=== PATIENT | male | born 1990 | race Caucasian/White ===

== ENCOUNTER 2024-07-16 06:09 | Day surgery (SDC) | payer OTHER, SELFPAY ==
[2024-07-16 07:30] VITALS: BP 134/63
[2024-07-16 07:40] VITALS: BMI 27.1
[2024-07-16 07:45] VITALS: BMI 27.1
[2024-07-16] MEDS: NORMOSOL-R/PLASMALYTE-A 1000 IV (07:50)
[2024-07-16] MEDS: TYLENOL 1000 MG PO (08:12)
[2024-07-16 09:32] VITALS: BP 102/54
[2024-07-16 09:45] VITALS: BP 102/60
[2024-07-16 10:00] VITALS: BP 107/60
[2024-07-16 10:07] VITALS: BP 110/61
[2024-07-16 10:15] VITALS: BP 109/73
== END 2024-07-16 10:30 | disposition home or self-care (01) ==
LOC: SDS 06:09
PROVIDERS: ATTENDING PHYSICIAN Orthopaedic Surgery
DX: S62.634A Displaced fracture of distal phalanx of right ring finger, initial encounter for closed fracture (principal); X58.XXXA Exposure to other specified factors, initial encounter
CPT/HCPCS: 26765